=== PATIENT | female | born 1990 | race Caucasian/White ===

== ENCOUNTER 2020-10-10 11:08 | Emergency (ER) | payer SELFPAY ==
[2020-10-10 11:09] VITALS: BP 135/94; PULSE 95; RESP 18; TEMP 36.9; O2SAT 98; BMI 23.4
[2020-10-10 12:21] LABS: Add Urine Microscopic? YES; Bilirubin Urine Neg (Negative); Blood Urine 2+ (Negative); Glucose Urine UA Norm (Normal); Ketones Urine 3+ (Negative); Leukocyte Esterase Urine 2+ (Negative); Nitrate Urine Positive (Negative); Protein Urine Neg (Negative); Urine Appearance SL Hazy (CLEAR); Urine Color Yellow (Yellow); Urobilinogen Urine Norm (Negative); pH Urine 5 (5-7)
[2020-10-10 12:25] LABS: Add Urine Culture? Yes; Bacteria Urine 1+ /hpf; Squamous Epithelial Cell Urine 0-4 /hpf (0-5); WBC Urine >100 /hpf (0-5)
--- NOTE | 2020-10-10 15:03 | ED_ITS ---
HPI - Abdominal Pain General: Chief Complaint: Abdominal Pain Stated Complaint: SEVERE L LOWER BACK/AB PAIN Time Seen by Provider: 10/10/20 14:57 History of Present Illness: HPI narrative: The patient is a 30-year-old female with past medical history ovarian cysts and urinary tract infections. She comes to the ER complaining of suprapubic and right flank pain for the past couple days. It has worsened significantly over the past day and she took Tylenol at h ome multiple times with no relief of her symptoms. She has also been having fever and chills. She is very tender in her right flank. No history of stones. MD elicited complaint: flank pain (right) Pertinent past history: past UTI Onset (ago): day(s) (2) Pain Consistency: constant Severity: moderate Quality: cramping and sharp Associated Symptoms: Reports GI cramping, dysuria, nausea and vomiting Review of Systems General: Reports: 10 or more systems reviewed and unremarkable except in HPI and below Const: Denies: fatigue Eyes: Denies: change in vision, blurry vision or eye redness ENMT: Denies: throat pain, swelling of lips/tongue, ear or mastoid pain or nasal congestion Card: Denies: chest pain, palpitations, irregular heart rhythm, edema, dyspnea on exertion or orthopnea Resp: Denies: dyspnea, productive cough or non-productive cough GI: Reports: nausea, vomiting and GI cramping : Reports: flank pain and dysuria Musc: Denies: neck pain, back pain, extremity pain, joint pain, joint redness, limited range of motion or muscle weakness Skin/Breast: Denies: rash, pruritus, erythema, skin pain or skin tenderness Neuro: Denies: headache(s), numbness in extremities, weakness in extremities, sensory changes, difficulty walking, dizziness, confusion or Slurred speech present Psych: Denies: anxiety or depression Endo: Denies: polyuria All/Imm: Denies: urticaria, throat swelling or tongue swelling Physical Exam Const: COMMON NORMALS: no acute distress, average body habitus, patient oriented x3, no limitations, healthy appearing, alert and well nourished GENERAL APPEARANCE: cooperative, comfortable, well kempt and well developed ORIENTATION/CONSCIOUSNESS: Yes awake, Yes oriented to person, Yes oriented to place and Yes oriented to time HENMT: COMMON NORMALS: normocephalic, external ears normal and Normal external nose present HEAD & SCALP: normal to inspection and normocephalic NOSE: Normal external nose present EXTERNAL EAR: Yes external ears normal MOUTH: Normal oral and palatal mucosa present THROAT: posterior oropharynx normal Eye: COMMON NORMALS: Equal, round and reactive pupils present and EOMs intact bilaterally GENERAL EYE: appearance normal, both eyes and all related structures PUPIL: Yes Equal, round and reactive pupils present Neck/C-Spine: COMMON NORMALS: full ROM, no lymphadenopathy, no meningeal signs and no JVD GENERAL: Yes normal visual inspection Lymph: LYMPHATIC: no lymphadenopathy noted Chest: COMMONS NORMALS: normal inspection of the chest and normal palpation of entire chest wall Resp: COMMON NORMALS: normal respiratory effort, No retractions, No use of accessory muscles, clear to auscultation bilaterally and percussion normal EFFORT & INSPECTION: Yes able to speak in complete sentences AUSCULTATION: clear to auscultation bilaterally PERCUSSION: percussion normal Cardio: COMMON NORMALS: no JVD, regular rate, regular rhythm, S1 normal heart sound present, S2 normal heart sound present and Peripheral pulses 2+ throughout RATE: regular rate RHYTHM: regular rhythm HEART SOUNDS: S1 normal heart sound present and S2 normal heart sound present PERIPHERAL PULSES: Peripheral pulses 2+ throughout GI: COMMON NORMALS: Normal to inspection, nondistended, normoactive bowel sounds present, Soft to palpation and no masses INSPECTION: Yes normal to inspection PALPATION: Yes Soft to palpation OTHER: Mild suprapubic tenderness. : BLADDER/KIDNEY EXAM: Yes CVA tenderness OTHER: right CVA tednerness. Back/Pelvis: COMMON NORMALS: thoracic and lumbar spine normal to inspection, no thoracic nor lumbar tenderness and thoraco-lumbar ROM normal GENERAL BACK: Yes CVA tenderness CVA tenderness: right Extremity: COMMON NORMALS: normal to inspection, full ROM, capillary refill normal, no joint enlargement and no pedal edema GENERAL: Yes normal exam except as noted Neuro: COMMON NORMALS: patient oriented x3, CN's II-XII intact bilaterally, moves all extremities, no focal motor deficits, no sensory deficits noted and gait normal SENSORIUM/ORIENTATION: Yes alert, Yes oriented to person, Yes oriented to place and Yes oriented to time MENINGEAL SIGNS: Yes no meningeal signs Psych: COMMON NORMALS: mental status grossly normal, Normal thought process present, cooperative, normal affect and speech normal APPEARANCE: Yes well kempt ATTITUDE: Yes calm SPEECH: Yes normal speech THOUGHT PROCESS: Normal thought process present Skin: COMMON NORMALS: no rashes or lesions noted GENERAL SKIN EXAM: no rashes or lesions noted Course Vital Signs: Vital signs: Vital Signs Temperature 98.4 F 10/10/20 11:09 Pulse Rate 95 10/10/20 11:09 Respiratory Rate 18 10/10/20 11:09 Blood Pressure 135/94 10/10/20 11:09 Pulse Oximetry 98 10/10/20 11:09 MDM - Abdominal Pain MDM Narrative: Medical decision making narrative: The patient symptoms likely represent pyelonephritis and UTI with a white count of 12.8. She was given fl uids, ceftriaxone, Toradol which helped her feel better in the ER. She preferred discharge home which is appropriate and we will send her home with Bactrim, and recommended drinking lots of fluids. Return to the ER with worsening symptoms otherwise follow-up with primary care doctor in 3 to 5 days. Differential Diagnosis: Differential diagnosis abdominal pain: Likely abdominal pain Lab Data: Labs: Lab Results 10/10/20 10/10/20 10/10/20 Range/Units 11:45 11:45 16:00 WBC (4.0-10.0) 10^3/ uL RBC (4.1-5.3) 10^6/u L Hgb (11.5-15.3) g/dL Hct (37.0-47.0) % MCV (81-99) fL MCH (28.0-34.0) pg MCHC (30.0-36.0) g/dL RDW (12.1-15.1) % Plt Count (130-400) 10^3/c mm MPV (7.4-10.4) fL Neut % (Auto) % Lymph % (Auto) % [place] % (Auto) % Eos % (Auto) % Baso % (Auto) % Neut # (Auto) (1.8-7.7) 10^3/u L Lymph # (Auto) (0.8-4.8) 10^3/u L [place] # (Auto) (0.2-0.9) 10^3/u L Eos # (Auto) (0.0-0.8) 10^3/u L Baso # (Auto) (0.0-0.1) 10^3/u L Nucleated RBC % (a uto) % Nucleated RBCs # /100WBC Sodium (136-145) mmol/L Potassium (3.5-5.1) mmol/L Chloride (98-107) mmol/L Carbon Dioxide (22-29) mmol/L Anion Gap (5-19) BUN (6-20) mg/dL Creatinine (0.5-0.9) mg/dL GFR Calculation (90-130) mL/min Glucose (65-115) mg/dL Calculated Osmolal ity (285-295) mOsm/k g Calcium (8.5-10.5) mg/dL Total Bilirubin (0.15-1.2) mg/dL AST (0-32) U/L ALT (0-33) U/L Alkaline Phosphata se (35-105) IU/L Total Protein (6.6-8.7) g/dL Albumin (3.5-5.2) g/dL Globulin (1.3-4.6) g/dL Lipase (13-60) U/L HCG, Qual Negative Negative (Negative) Urine Color Yellow (Yellow) Urine Appearance Sl hazy (CLEAR) Urine pH 5 (5-7) Ur Specific Gravit y 1.010 (1.005-1.030) Urine Protein Neg (Negative) Urine Glucose (UA) Norm (Normal) Urine Ketones 3+ H (Negative) Urine Blood 2+ H (Negative) Urine Nitrate Positive H (Negative) Urine Bilirubin Neg (Negative) Urine Urobilinogen Norm (Negative) mg/dL Ur Leukocyte Carmen ase 2+ H (Negative) Urine RBC 10-15 H (0-2) /hpf Urine WBC >100 H (0-5) /hpf Ur Squamous Epith Cells 0-4 H (0-5) /hpf Amorphous Sediment Not Reportable Urine Bacteria 1+ H (NONE) /hpf Hepatitis A IgM Ab (Nonreactive) Hep Bs Antigen (Nonreactive) Hep B Core IgM Ab (Nonreactive) Hepatitis C Antibo dy (Nonreactive) 10/10/20 10/10/20 10/10/20 Range/Units 16:00 16:00 16:00 WBC 12.8 H (4.0-10.0) 10^3/ uL RBC 3.91 L (4.1-5.3) 10^6/u L Hgb 12.2 (11.5-15.3) g/dL Hct 36.2 L (37.0-47.0) % MCV 92.6 (81-99) fL MCH 31.2 (28.0-34.0) pg MCHC 33.7 (30.0-36.0) g/dL RDW 11.4 L (12.1-15.1) % Plt Count 214 (130-400) 10^3/c mm MPV 11.1 H (7.4-10.4) fL Neut % (Auto) 87.6 % Lymph % (Auto) 4.8 % [place] % (Auto) 7.1 % Eos % (Auto) 0.0 % Baso % (Auto) 0.2 % Neut # (Auto) 11.25 H (1.8-7.7) 10^3/u L Lymph # (Auto) 0.6 L (0.8-4.8) 10^3/u L [place] # (Auto) 0.9 (0.2-0.9) 10^3/u L Eos # (Auto) 0.0 (0.0-0.8) 10^3/u L Baso # (Auto) 0.0 (0.0-0.1) 10^3/u L Nucleated RBC % (a uto) 0 % Nucleated RBCs # 0.0 /100WBC Sodium 135 L (136-145) mmol/L Potassium 3.5 (3.5-5.1) mmol/L Chloride 100 (98-107) mmol/L Carbon Dioxide 23 (22-29) mmol/L Anion Gap 15.5 (5-19) BUN 10 (6-20) mg/dL Creatinine 0.8 (0.5-0.9) mg/dL GFR Calculation 83.1 L (90-130) mL/min Glucose 125 H (65-115) mg/dL Calculated Osmolal ity 281 L (285-295) mOsm/k g Calcium 9.3 (8.5-10.5) mg/dL Total Bilirubin 0.6 (0.15-1.2) mg/dL AST 47 H (0-32) U/L ALT 66 H (0-33) U/L Alkaline Phosphata se 97 (35-105) IU/L Total Protein 7.2 (6.6-8.7) g/dL Albumin 4.3 (3.5-5.2) g/dL Globulin 2.9 (1.3-4.6) g/dL Lipase 14 (13-60) U/L HCG, Qual (Negative) Urine Color (Yellow) Urine Appearance (CLEAR) Urine pH (5-7) Ur Specific Gravit y (1.005-1.030) Urine Protein (Negative) Urine Glucose (UA) (Normal) Urine Ketones (Negative) Urine Blood (Negative) Urine Nitrate (Negative) Urine Bilirubin (Negative) Urine Urobilinogen (Negative) mg/dL Ur Leukocyte Carmen ase (Negative) Urine RBC (0-2) /hpf Urine WBC (0-5) /hpf Ur Squamous Epith Cells (0-5) /hpf Amorphous Sediment Urine Bacteria (NONE) /hpf Hepatitis A IgM Ab Non-reactive (Nonreactive) Hep Bs Antigen Non-reactive (Nonreactive) Hep B Core IgM Ab Non-reactive (Nonreactive) Hepatitis C Antibo dy Non-reactive (Nonreactive) Discharge Plan Discharge Patient Disposition: Home Clinical Impression: UTI (urinary tract infection) Qualifiers: Urinary tract infection type: site unspecified Hematuria presence: without hematuria Qualified Code(s): N39.0 - Urinary tract infection, site not specified Condition: Stable Prescriptions: New Bactrim DS 800-160 mg tablet 1 tab PO BID 14 Days Qty: 28 RF: 0 No Action Tylenol Extra Strength 500 mg Tablet 1,000 mg PO PRN RF: 0 Alavert D-12 Allergy-Sinus 5-120 mg Tablet Extended Release 12 Hr 1 tab PO DAILY@09 RF: 0 ibuprofen 200 mg Tablet 400 mg PO PRN RF: 0 Discharge Orders: Discharge ED (Routine); Ordered 10/10/20 Ordered By: Isrrael Bansal Discharge Diet: Advance as tolerated Discharge Activity: Resume usual activity Patient Instructions: Urinary Tract Infection in Women (ED), Acute Pyelonephritis (ED) Activity Restrictions/Additional Instructions: You have a urinary tract infection that has possibly tracked up to your kidney. Please take the Bactrim for 2 weeks. it is 1 pill twice a day. Also drink lots of fluids during that time. You should start to improve in the next day or 2 if the antibiotic is working. If you are still not feeling well or worsen please return to the ER for reevaluation. Otherwise follow-up with your primary care doctor in 3 to 5 days and check the result of the urine culture to make sure the antibiotic is sensitive to the bacteria. Coding Level of Care Code ED Medical Research Tech for Shadi Fwd Exam Comprehensive
[2020-10-10 15:19] LABS: HCG Qualitative Urine. Negative (Negative)
[2020-10-10] MEDS: acetaminophen 325 mg Tablet 650 MG PO (15:42)
[2020-10-10] MEDS: cefTRIAXone 1,000 MG in sodium chloride 0.9% (plus) 50 ML 100 MG IV (15:42)
[2020-10-10] MEDS: ketorolac 30 mg/mL INJ 15 MG IVP (15:43)
[2020-10-10] MEDS: ondansetron 2 mg/ML SDV 2 mL 4 MG IVP (15:44)
[2020-10-10] MEDS: sodium chloride 0.9% 1,000 ML 999 ML IV (15:44)
[2020-10-10 16:17] LABS: Basophils % 0.2 %; Hematocrit 36.2 % (37.0-47.0); Hemoglobin 12.2 g/dL (11.5-15.3); Lymphocytes # 0.6 10^3/uL (0.8-4.8); Lymphocytes % 4.8 %; Mean Corpuscular HGB Conc 33.7 g/dL (30.0-36.0); Mean Corpuscular Hemoglobin 31.2 pg (28.0-34.0); Mean Corpuscular Volume 92.6 fL (81-99); Mean Platelet Volume 11.1 fL (7.4-10.4); Monocytes # 0.9 10^3/uL (0.2-0.9); Monocytes % 7.1 %; Neutrophils # 11.25 10^3/uL (1.8-7.7); Neutrophils % 87.6 %; Nucleated Red Blood Cells % 0 %; Platelet Count 214 10^3/cmm (130-400); Red Blood Count 3.91 10^6/uL (4.1-5.3); Red Cell Distribution Width 11.4 % (12.1-15.1); White Blood Count 12.8 10^3/uL (4.0-10.0)
--- NOTE | 2020-10-10 16:21 | CT_ITS ---
WS: [id number] CT scan of the abdomen and pelvis without Oral and IV contrast. Additional two-dimensional coronal an d sagittal reconstruction was performed. 10/10/2020 Clinical Data: r/o stone/abscess/pyelonephritis Comparison: None. DLP: 684.[address] scans at [facility] use at least one of these dose optimization techniques: automat ed exposure control; mA and/or kV adjustment per patient size (includes targeted exams where dose is matched to clinical indication); or iterative reconstruction. Findings: The lower lungs show no nodules, masses or effusions. The liver, gallbladder, spleen, adrenal glands and pancreas are normal. The kidneys show no no cyst or masses. There is no evidence of hydronephrosis, renal calculi, uretera l calculi or pyelonephritis. The abdominal aorta is normal in size. No abscess, adenopathy, ascites, mass, obstruction or free air is seen. No appendicitis or diverticulitis is seen. The stomach, small bowel and colon are unremarkable. The b ladder is unremarkable. No inguinal hernia is seen. Uterus is normal. The bones of the lower thorax, lumbar spine, pelvis, and hips are normal. CT/CT kidney stone [id number] Impression: 1. Negative for acute intra-abdominal or pelvic abnormalities. 2. Negative for renal calculi, renal abscess or pyelonephritis.
[2020-10-10 16:33] LABS: HCG, Serum Qual Negative (Negative)
[2020-10-10 16:37] LABS: Alanine Aminotransferase 66 U/L (0-33); Albumin Level 4.3 g/dL (3.5-5.2); Alkaline Phosphatase 97 IU/L (35-105); Anion Gap 15.5 (5-19); Aspartate Amino Transferase 47 U/L (0-32); Blood Urea Nitrogen 10 mg/dL (6-20); Calcium 9.3 mg/dL (8.5-10.5); Carbon Dioxide 23 mmol/L (22-29); Chloride 100 mmol/L (98-107); Globulin 2.9 g/dL (1.3-4.6); Glomerular Filtration Rate 83.1 mL/min (90-130); Glucose 125 mg/dL (65-115); Lipase 14 U/L (13-60); Osmolality Calculated 281 mOsm/kg (285-295); Potassium 3.5 mmol/L (3.5-5.1); Sodium 135 mmol/L (136-145); Total Bilirubin 0.6 mg/dL (0.15-1.2); Total Protein 7.2 g/dL (6.6-8.7)
[2020-10-10 17:39] LABS: Hepatitis A Antibody IgM Non-Reactive (Nonreactive); Hepatitis B Core IgM Non-Reactive (Nonreactive); Hepatitis B Surface Antigen Non-Reactive (Nonreactive); Hepatitis C Virus Antibody Non-Reactive (Nonreactive)
[2020-10-10 18:08] VITALS: BP 105/58; PULSE 91; RESP 20; TEMP 37.1; O2SAT 98
== END 2020-10-10 18:12 | disposition home or self-care (01) ==
PROVIDERS: Nurse Practitioner Family; Emergency Provider Family Medicine
DX: N39.0 Urinary tract infection, site not specified (principal)
CPT/HCPCS: 12345; 74176; 80053; 80074; 81001; 81025; 83690; 84703; 85025; 87077; 87086; 87186; 96361; 96374; 96375; 99282; 99283; J0696; J1885; J2405; J7030

== ENCOUNTER 2021-04-02 11:20 | Emergency (ER) | payer BC, SELFPAY ==
[2021-04-02 11:31] VITALS: TEMP 37.1; BMI 23.8
--- NOTE | 2021-04-02 11:37 | CT_ITS ---
WS: [id number] CT ABDOMEN PELVIS TECHNIQUE: Noncontrast CT of the abdomen and pelvis with coronal and sagittal reformatted images. CLINICAL INFORMATION: pain r flank and ruq; h/o c-sections and tubal ligation COMPARISON: October 10, 2020 DLP: 644.[address] scans at [facility] use at least one of these dose optimization techniques: automat ed exposure control; mA and/or kV adjustment per patient size (includes targeted exams where dose is matched to clinical indication); or iterative reconstruction. FINDINGS: Adrenal glands are normal. No hydronephrosis in either kidney. No obstructing right renal or ureteral calculi. Right ureter is decompressed. No hydronephrosis. Small low-attenuation lesion upper pole le ft kidney likely renal cyst measures 9 mm. This can be followed up with ultrasound. Enlarged lobulated uterus with fluid in the endometrial canal. This is similar in appearance to the p rior examination. Retroflexed fundus. Mild rectosigmoid constipation. No evidence of small or large b owel obstruction. Small fat-containing umbilical hernia. Normal caliber abdominal aorta. No abdominal or pelvic lymphadenopathy. No inguinal lymphadenopathy. Normal appendix in the right lower quadrant. No evidence of acute appendicitis. Appendix is decompres sed. CT/CT kidney stone [id number] IMPRESSION: 1. No obstructing renal or ureteral calculi. No hydronephrosis in either kidne y. 2. Suggestion of a tiny amount of induration about the right kidney. Recommend correlation for UTI. 3. Normal appendix in the right lower quadrant which is decompressed. No evide nce of acute appendicitis. 4. Enlarged tortuous uterus with retroflexed fundus. This is similar in appear ance to the prior CT October 10, 2019 5. Mild rectosigmoid constipation. 6. Low-attenuation lesion upper pole left kidney likely renal cyst measuring 9 mm is unchanged. This can be followed up with ultrasound on an elective basis. 7. No other significant findings.
--- NOTE | 2021-04-02 11:40 | W.ED.ABDPA2 ---
HPI - Abdominal Pain General: Chief Complaint: Urogenital-Female Stated Complaint: R side ABD pain Time Seen by Provider: 04/02/21 11:25 Source: patient Mode of arrival: ambulatory Limitations: no limitations History of Present Illness: HPI narrative: Patient complaint of right flank pain since 2 days ago. Pain is intermittent. Now has right upper quadrant abdominal pain also. Patient has had some nausea today. She denies any vomiting. She denies any dysuria or hematuria. She states she did take her temperature at home and had 101 degree temperature at home today. She is afebrile now. She has history of bilateral tubal ligation and . She states she does smoke tobacco. Possible history includes migraine headaches, kidney stones, urinary tract infection. Her primary care physician is Joleen Yeboah in [place] elicited complaint: abdominal pain and flank pain (right) Pertinent past history: kidney stones and past UTI Onset (ago): day(s) (2) Pain Consistency: intermittent (improving) Location: RUQ and R flank Severity: mild Quality: aching Radiation: RUQ Exacerbating factors: nothing Relieving factors: nothing Associated Symptoms: Reports nausea; Denies change in stool character, chills, constipation, diarrhea, dysuria, fever(s), hematochezia, melena and vomiting Related Data: Patient : No Review of Systems Const: Denies: fever(s) or chills Eyes: Denies: change in vision ENMT: Denies: throat pain Card: Denies: chest pain or palpitations Resp: Denies: dyspnea or wheezing GI: Reports: abdominal pain and nausea; Denies: vomiting, diarrhea, constipation, change in stool character, hematochezia or melena : Reports: flank pain; Denies: difficulty voiding, dysuria, urinary frequency or urinary urgency Musc: Denies: neck pain or back pain Skin/Breast: Denies: rash or pruritus Neuro: Denies: headache(s) or numbness in extremities Psych: Denies: anxiety Angel/Lymph: Denies: enlarged lymph nodes Physical Exam Const: COMMON NORMALS: no acute distress, patient oriented x3, no limitations and well nourished EXAM LIMITATIONS: no altered mental status GENERAL APPEARANCE: cooperative HENMT: COMMON NORMALS: normocephalic and atraumatic HEAD & SCALP: normocephalic and atraumatic FACE & SINUS: normal facial exam Eye: COMMON NORMALS: EOMs intact bilaterally Neck/C-Spine: COMMON NORMALS: full ROM, no lymphadenopathy, supple and no meningeal signs GENERAL: Yes normal visual inspection Lymph: LYMPHATIC: no lymphadenopathy noted Chest: COMMONS NORMALS: normal inspection of the chest and normal palpation of entire chest wall CHEST: No Ecchymosis present and No rash Resp: COMMON NORMALS: normal respiratory effort, No retractions and clear to auscultation bilaterally EFFORT & INSPECTION: No respiratory distress AUSCULTATION: clear to auscultation bilaterally Cardio: COMMON NORMALS: regular rate, regular rhythm and Peripheral pulses 2+ throughout JUGULAR VENOUS DISTENTION: no JVD RATE: regular rate RHYTHM: regular rhythm PERIPHERAL PULSES: Peripheral pulses 2+ throughout GI: COMMON NORMALS: Normal to inspection, nondistended, normoactive bowel sounds present and Soft to palpation PALPATION: Yes Soft to palpation and Yes Tenderness to palpation present (GI) (Minimal right upper quadrant abdominal pain) : BLADDER/KIDNEY EXAM: Yes CVA tenderness Back/Pelvis: GENERAL BACK: Yes CVA tenderness CVA tenderness: right Extremity: COMMON NORMALS: normal to inspection, full ROM and capillary refill normal Neuro: COMMON NORMALS: patient oriented x3, CN's II-XII intact bilaterally, no focal motor deficits and no sensory deficits noted MENINGEAL SIGNS: Yes no meningeal signs Psych: COMMON NORMALS: mental status grossly normal and Normal thought process present THOUGHT PROCESS: Normal thought process present Skin: COMMON NORMALS: no rashes or lesions noted and no wounds GENERAL SKIN EXAM: no rashes or lesions noted Course Vital Signs: Vital signs: Vital Signs Temperature 98.8 F 04/02/21 11:31 Pulse Rate 65 04/02/21 12:48 Respiratory Rate 18 04/02/21 12:48 Blood Pressure 113/59 04/02/21 12:48 Pulse Oximetry 97 04/02/21 12:48 MDM - Abdominal Pain Differential Diagnosis: Differential diagnosis abdominal pain: Likely abdominal pain (Cholelithiasis) and calculus of kidney Lab Data: Attestation: I reviewed the patient's lab results. Labs: Lab Results 04/02/21 04/02/21 04/02/21 Range/Units 11:50 11:50 11:50 WBC 11.2 H (4.0-10.0) 10^3/ uL RBC 4.41 (4.1-5.3) 10^6/u L Hgb 13.5 (11.5-15.3) g/dL Hct 41.7 (37.0-47.0) % MCV 94.6 (81-99) fL MCH 30.6 (28.0-34.0) pg MCHC 32.4 (30.0-36.0) g/dL RDW 12.6 (12.1-15.1) % Plt Count 236 (130-400) 10^3/c mm MPV 10.9 H (7.4-10.4) fL Neut % (Auto) 78.9 % Lymph % (Auto) 11.8 % Lamar % (Auto) 8.3 % Eos % (Auto) 0.3 % Baso % (Auto) 0.3 % Neut # (Auto) 8.87 H (1.8-7.7) 10^3/u L Lymph # (Auto) 1.3 (0.8-4.8) 10^3/u L Lamar # (Auto) 0.9 (0.2-0.9) 10^3/u L Eos # (Auto) 0.0 (0.0-0.8) 10^3/u L Baso # (Auto) 0.0 (0.0-0.1) 10^3/u L Nucleated RBC % (a uto) 0 % Nucleated RBCs # 0.0 /100WBC Sodium 134 L (136-145) mmol/L Potassium 3.6 (3.5-5.1) mmol/L Chloride 99 (98-107) mmol/L Carbon Dioxide 22 (22-29) mmol/L Anion Gap 16.6 (5-19) BUN 10 (6-20) mg/dL Creatinine 0.6 (0.5-0.9) mg/dL GFR Calculation 115.1 (90-130) mL/min Glucose 90 (65-115) mg/dL Calculated Osmolal ity 277 L (285-295) mOsm/k g Calcium 8.7 (8.5-10.5) mg/dL Total Bilirubin 1.2 (0.15-1.2) mg/dL AST 9 (0-32) U/L ALT 8 (0-33) U/L Alkaline Phosphata se 76 (35-105) IU/L Total Protein 6.7 (6.6-8.7) g/dL Albumin 4.4 (3.5-5.2) g/dL Globulin 2.3 (1.3-4.6) g/dL HCG, Qual Negative (Negative) Urine Color (Yellow) Urine Appearance (CLEAR) Urine pH (5-7) Ur Specific Gravit y (1.005-1.030) Urine Protein (Negative) Urine Glucose (UA) (Normal) Urine Ketones (Negative) Urine Blood (Negative) Urine Nitrate (Negative) Urine Bilirubin (Negative) Urine Urobilinogen (Negative) mg/dL Ur Leukocyte Carmen ase (Negative) Urine RBC (0-2) /hpf Urine WBC (0-5) /hpf Ur Squamous Epith Cells (0-5) /hpf Amorphous Sediment Urine Bacteria (NONE) /hpf Urine Mucus /hpf 04/02/21 Range/Units 12:44 WBC (4.0-10.0) 10^3/ uL RBC (4.1-5.3) 10^6/u L Hgb (11.5-15.3) g/dL Hct (37.0-47.0) % MCV (81-99) fL MCH (28.0-34.0) pg MCHC (30.0-36.0) g/dL RDW (12.1-15.1) % Plt Count (130-400) 10^3/c mm MPV (7.4-10.4) fL Neut % (Auto) % Lymph % (Auto) % Lamar % (Auto) % Eos % (Auto) % Baso % (Auto) % Neut # (Auto) (1.8-7.7) 10^3/u L Lymph # (Auto) (0.8-4.8) 10^3/u L Lamar # (Auto) (0.2-0.9) 10^3/u L Eos # (Auto) (0.0-0.8) 10^3/u L Baso # (Auto) (0.0-0.1) 10^3/u L Nucleated RBC % (a uto) % Nucleated RBCs # /100WBC Sodium (136-145) mmol/L Potassium (3.5-5.1) mmol/L Chloride (98-107) mmol/L Carbon Dioxide (22-29) mmol/L Anion Gap (5-19) BUN (6-20) mg/dL Creatinine (0.5-0.9) mg/dL GFR Calculation (90-130) mL/min Glucose (65-115) mg/dL Calculated Osmolal ity (285-295) mOsm/k g Calcium (8.5-10.5) mg/dL Total Bilirubin (0.15-1.2) mg/dL AST (0-32) U/L ALT (0-33) U/L Alkaline Phosphata se (35-105) IU/L Total Protein (6.6-8.7) g/dL Albumin (3.5-5.2) g/dL Globulin (1.3-4.6) g/dL HCG, Qual (Negative) Urine Color Yellow (Yellow) Urine Appearance Cloudy A (CLEAR) Urine pH 5 (5-7) Ur Specific Gravit y 1.015 (1.005-1.030) Urine Protein 1+ H (Negative) Urine Glucose (UA) Norm (Normal) Urine Ketones 2+ H (Negative) Urine Blood 2+ H (Negative) Urine Nitrate Positive H (Negative) Urine Bilirubin Neg (Negative) Urine Urobilinogen Neg (Negative) mg/dL Ur Leukocyte Carmen ase 2+ H (Negative) Urine RBC 25-40 H (0-2) /hpf Urine WBC 25-40 H (0-5) /hpf Ur Squamous Epith Cells 0-4 H (0-5) /hpf Amorphous Sediment Not Reportable Urine Bacteria 2+ H (NONE) /hpf Urine Mucus 2+ /hpf Imaging Data ^: CT Abd/Pel: Radiologist's impression: [address] [id number] Scan ReportSigned Patient: Lorelei Simmons #: [id number]: [id number]#:[id number]/Sex: 31 / FADM Date: 04/02/21Loc: ERRoom/Bed:Attending Dr: Ordering Provider/Ordering MD: Derrek Wyatt MD Date of Service: 04/02/21 Procedure(s): CT kidney stone 13533 Accession Number(s): [id number] Report Number: [id number] WS: [id number] CT ABDOMEN PELVIS TECHNIQUE: Noncontrast CT of the abdomen and pelvis with coronal and sagittal reformatted images. CLINICAL INFORMATION: pain r flank and ruq; h/o c-sections and tubal ligation COMPARISON: October 10, 2020 DLP: 644.[address] scans at [facility] use at least one of these dose optimization techniques: automated exposure control; mA and/or kV adjustment per patient size (includes targeted exams where dose is matched to clinical indication); or iterative reconstruction. FINDINGS: Adrenal glands are normal. No hydronephrosis in either kidney. No obstructing right renal or ureteral calculi. Right ureter is decompressed. No hydronephrosis. Small low-attenuation lesion upper pole left kidney likely renal cyst measures 9 mm. This can be followed up with ultrasound. Enlarged lobulated uterus with fluid in the endometrial canal. This is similar in appearance to the prior examination. Retroflexed fundus. Mild rectosigmoid constipation. No evidence of small or large bowel obstruction. Small fat-containing umbilical hernia. Normal caliber abdominal aorta. No abdominal or pelvic lymphadenopathy. No inguinal lymphadenopathy. Normal appendix in the right lower quadrant. No evidence of acute appendicitis. Appendix is decompressed. CT/CT kidney stone [id number] IMPRESSION: 1. No obstructing renal or ureteral calculi. No hydronephrosis in either kidney. 2. Suggestion of a tiny amount of induration about the right kidney. Recommend correlation for UTI. 3. Normal appendix in the right lower quadrant which is decompressed. No evidence of acute appendicitis. 4. Enlarged tortuous uterus with retroflexed fundus. This is similar in appearance to the prior CT October 10, 2019 5. Mild rectosigmoid constipation. 6. Low-attenuation lesion upper pole left kidney likely renal cyst measuring 9 mm is unchanged. This can be followed up with ultrasound on an elective basis. 7. No other significant findings. Dictated By:Toño Murcia MDSigned By:Toño Murcia MDSigned Date/Time:04/02/21 1308 Discharge Plan Discharge Patient Disposition: Home Clinical Impression: Pyelonephritis, Right flank pain Urinary tract infection Qualifiers: Urinary tract infection type: acute pyelonephritis Qualified Code(s): N10 - Acute pyelonephritis Condition: Stable Prescriptions: New cephalexin 500 mg capsule 500 mg PO QID 10 Days Qty: 40 RF: 0 Zofran 4 mg tablet 4 mg PO Q6H PRN (Reason: nausea and vomiting) Qty: 10 RF: 2 hydrocodone-acetaminophen 5-325 mg tablet 1 tab PO Q6H PRN (Reason: pain) Qty: 10 RF: 0 No Action acetaminophen [Tylenol Extra Strength] 500 mg Tablet 1,000 mg PO PRN RF: 0 Alavert D-12 Allergy-Sinus 5-120 mg Tablet Extended Release 12 Hr 1 tab PO DAILY@09 RF: 0 ibuprofen 200 mg Tablet 400 mg PO PRN RF: 0 Discharge Orders: Discharge ED (Routine); Ordered 04/02/21 Ordered By: Derrek Wyatt Referrals: Joleen Yeboah MD [Referring] - (Follow-up with primary care doctor next week for recheck. Return if problems. Start cephalexin antibiotic tomorrow. May take acetaminophen or hydrocodone for pain but do not take both.) Discharge Diet: Usual diet Discharge Activity: Increase activity as tolerated Patient Instructions: Urinary Tract Infection in Women (ED), Acute Pyelonephritis (ED), Abdominal Pain (ED), Opioid Safety Activity Restrictions/Additional Instructions: Drink plenty of fluids. Start cephalexin antibiotic tomorrow morning. Return if worse. Coding Level of Care Code ED Dimpling Machine Operator for Shadi Fwd Exam Comprehensive
[2021-04-02 11:52] VITALS: BP 121/67; PULSE 97; RESP 19; O2SAT 97
[2021-04-02 12:03] LABS: Basophils % 0.3 %; Eosinophils % 0.3 %; Hematocrit 41.7 % (37.0-47.0); Hemoglobin 13.5 g/dL (11.5-15.3); Lymphocytes # 1.3 10^3/uL (0.8-4.8); Lymphocytes % 11.8 %; Mean Corpuscular HGB Conc 32.4 g/dL (30.0-36.0); Mean Corpuscular Hemoglobin 30.6 pg (28.0-34.0); Mean Corpuscular Volume 94.6 fL (81-99); Mean Platelet Volume 10.9 fL (7.4-10.4); Monocytes # 0.9 10^3/uL (0.2-0.9); Monocytes % 8.3 %; Neutrophils # 8.87 10^3/uL (1.8-7.7); Neutrophils % 78.9 %; Nucleated Red Blood Cells % 0 %; Platelet Count 236 10^3/cmm (130-400); Red Blood Count 4.41 10^6/uL (4.1-5.3); Red Cell Distribution Width 12.6 % (12.1-15.1); White Blood Count 11.2 10^3/uL (4.0-10.0)
[2021-04-02] MEDS: ketorolac 30 mg/mL INJ IVP (12:07)
[2021-04-02] MEDS: ondansetron 2 mg/ML SDV 2 mL 4 MG IVP (12:08)
[2021-04-02 12:17] LABS: HCG, Serum Qual Negative (Negative)
[2021-04-02 12:19] LABS: Alanine Aminotransferase 8 U/L (0-33); Albumin Level 4.4 g/dL (3.5-5.2); Alkaline Phosphatase 76 IU/L (35-105); Anion Gap 16.6 (5-19); Aspartate Amino Transferase 9 U/L (0-32); Blood Urea Nitrogen 10 mg/dL (6-20); Calcium 8.7 mg/dL (8.5-10.5); Carbon Dioxide 22 mmol/L (22-29); Chloride 99 mmol/L (98-107); Globulin 2.3 g/dL (1.3-4.6); Glomerular Filtration Rate 115.1 mL/min (90-130); Glucose 90 mg/dL (65-115); Osmolality Calculated 277 mOsm/kg (285-295); Potassium 3.6 mmol/L (3.5-5.1); Sodium 134 mmol/L (136-145); Total Bilirubin 1.2 mg/dL (0.15-1.2); Total Protein 6.7 g/dL (6.6-8.7)
[2021-04-02 12:48] VITALS: BP 113/59; PULSE 65; RESP 18; O2SAT 97
[2021-04-02 13:15] LABS: Protein Urine 1+ (Negative); Specific Gravity, Urine 1.015 (1.005-1.030); Urine Appearance Cloudy (CLEAR); Urine Color Yellow (Yellow); pH Urine 5 (5-7)
[2021-04-02 13:16] LABS: Bilirubin Urine Neg (Negative); Blood Urine 2+ (Negative); Glucose Urine UA Norm (Normal); Ketones Urine 2+ (Negative); Leukocyte Esterase Urine 2+ (Negative); Nitrate Urine Positive (Negative); RBC Urine 25-40 /hpf (0-2); Urobilinogen Urine Neg (Negative); WBC Urine 25-40 /hpf (0-5)
[2021-04-02 13:17] LABS: Add Urine Culture? Yes; Bacteria Urine 2+ /hpf; Mucus Urine 2+ /hpf; Squamous Epithelial Cell Urine 0-4 /hpf (0-5)
[2021-04-02] MEDS: cefTRIAXone 1,000 MG in sodium chloride 0.9% (plus) 50 ML 100 MG IV (13:24)
[2021-04-02 13:59] VITALS: BP 106/57; PULSE 59; RESP 19; TEMP 37.1; O2SAT 98
== END 2021-04-02 14:02 | disposition home or self-care (01) ==
PROVIDERS: Emergency Provider Family Medicine
DX: N10 Acute pyelonephritis (principal)
CPT/HCPCS: 74176; 80053; 81001; 84703; 85025; 87077; 87086; 87186; 96365; 96375; 99284; J0696; J1885; J2405